=== PATIENT | male | born 1970 ===

== ENCOUNTER 2016-03-10 10:12 | Emergency (ER) | payer OTHER ==
[~2016-03-10] VITALS: Ht 165.1 cm; Wt 72.7 kg
[~2016-03-10 10:12] MED LIST: NOMED
[2016-03-10 10:17] VITALS: BP 135/89; PULSE 130; RESP 16; O2SAT 97
--- NOTE | 2016-03-10 10:30 | ED.REPORT ---
HPI-General Illness Date of Service Mar 10, 2016 ED Provider: Yousif Rueals DO Pt is a 45 y/o healthy male w/ a hx of hemorrhoids and previous anal fissure presenting to the ED c/o rectal pain for 2 days. He believes today's episode is similar to a previous anal fissure. It has been causing him significant pain with walking causing him some concern. Bowel movements exacerbate his pain. He has hard stools often. His rectum feels somewhat swollen on the outside. He denies rectal bleeding, drainage, obvious lumps or bumps, fever. He has no history of Crohn's disease or ulcerative colitis. Nursing Notes Stated Complaint: LEG PAIN/POSS Hemorrhoids Chief Complaint: General Complaint Nursing Notes Reviewed: Yes Allergies: Coded Allergies: No Known Allergies (Verified Allergy, 01/01/12) Scheduled Amoxicillin/Clav K 875-125 mg (Augmentin 875-125 mg) 1 Each Tablet 1 TABLET PO BID Scheduled PRN Ibuprofen (Ibuprofen) 800 Mg Tablet 800 MG PO TID PRN PRN For Pain Oxycodone (Roxicodone) 5 Mg Tablet 2.5-5 MG PO Q4H PRN PRN For Pain Miscellaneous Medications No Historical Medication (No Historical Medication) Ea General Time Seen by MD: 10:30 Chief Complaint Other (Rectal pain) Hx Obtained From: Patient Arrived By: Walk-in Sudden in Onset?: No Onset Occurred: 2 days ago Symptom Duration: Since onset Quality: Painful Severity: Current: Moderate Severity: Maximum: Severe Past Medical History Past Medical History Hemorrhoids Anal fissure Past Surgical History Knee Smoking History Former Smoker Social History Alcohol Use: "Social" Ambulatory Status Independent Review of Systems + rectal pain Full Review of Systems Constitutional: Denies: Fever GI: Denies: Bloody/tarry stool, Diarrhea, Nausea, Vomiting Complete sys rev & neg: except as marked. Physical Exam Vital Signs Vital Signs Date Time Temp Pulse Resp B/P Pulse Ox O2 Delivery O2 Flow Rate FiO2 03/10/16 12:05 36.9 95 15 128/80 98 Room Air 03/10/16 10:35 105 15 132/85 96 Room Air 03/10/16 10:17 36.9 130 16 135/89 97 Room Air Initial VS: Reviewed, Vital signs abnormal Head / Eyes: Atraumatic, Normocephalic, PERRL ENT: Mucous membranes moist, Conjunctiva normal, No scleral icterus Neck: Supple, Full range of motion Respiratory: Breath sounds normal, Clear to auscultation, No respiratory distress Cardiovascular: Regular rate & rhythm, Heart sounds normal, Intact distal pulses Abdomen / GI: Soft, Non-tender, No guarding, No rebound, No distention Extremities: Vascular intact, Neuro intact, No swelling, No tenderness Skin: Warm, Dry, No cyanosis Neurologic: Alert, Oriented, Nonfocal Psychiatric: Mood/affect normal, Behavior normal, Normal thought content Rectum / Perineum: Atraumatic, No gross blood, No fissures, No hemorrhoids 1.5 cm area of induration and tenderness perirectally just lateral to the sphincter at the 0900 position (right-sided). Procedures Incision & Drainage Abscess Time: 11:41 Procedure Performed by: ED physician Consent / Setup / Site Prep: Consent from patient, Time-out performed, Hand hygiene observed, Stand sterile technique, Sterile drapes applied Location of Abscess: See physical exam Skin Preparation Agent: Other (topical LET) Local Anesthesia: Lidocaine w epi 1%, 4cc Incised Abscess with Scalpel: #11 Pus Drained: Bloody Post-Procedure / Complications: Dressing applied, No complications, Condition improved, Tolerated procedure well, Patient stable Re-Eval/Medical Decision Med Decision/Clinical Course Small perirectal abscess, I&D at the bedside, no palpable induration inside of the rectum to suggest a fistula. Patient is otherwise well-appearing and I suspect a deep or otherwise a drainable abscess. Patient's symptoms have improved after I&D. He is prescribed Augmentin as well as pain management and will return to ER or follow-up in a few days with surgery. Return precautions given. Time of Eval: 11:47 Patient Status: Condition improved, Moderate relief, Pain improved Re-Evaluation/Progress Note: Pt rechecked. Informed pt of plan for treatment. Pt understands and agrees with plan for treatment. F/U and RTER warnings given. All questions addressed. Counseled Regarding: Diagnosis, Lab results, Need for follow-up, When/why to return to ED Discharge & Departure Primary Impression: Perirectal abscess Disposition: Home Discharge Condition All VS Reviewed: Yes Condition: Stable Patient Instructions: Abscess (ED) Additional Instructions: You had a perirectal abscess that was incised and drained today. I have placed the surgeon's referral number below for the surgery clinic and the [facility] which you can use for a primary doctor. Return to the emergency department if you develop a fever, your pain increases, you feel any growth of the abscess, you feel profoundly weak, or for any other concerning symptoms. Referrals: Serjio Orona MD [facility] Scribe Attestation Portions of this note were transcribed by Justin Michaels. I, Dr. Ruelas personally performed the history, physical exam and medical decision-making; I reviewed and confirmed the accuracy of the information in the transcribed note. Signed by Harriett Emerson, 03/10/16 - 1047 Yousif Ruelas DO Mar 10, 2016 10:30 JUSTIN MICHAELS Mar 10, 2016 10:47
[2016-03-10 10:35] VITALS: BP 132/85; PULSE 105; RESP 15; O2SAT 96
[2016-03-10] MEDS ORDERED: Lidocaine 1%-Epi 1:100,000 50 mL Inj SUBQ ONE (11:05)
[2016-03-10] MEDS ORDERED: Lidocaine-Epi-Tetracaine Solution 3 mL Syringe TOPICAL ONE (11:05)
[2016-03-10] MEDS ORDERED: AMOX-366 PO (11:52)
[2016-03-10] MEDS ORDERED: IBUP800T28 PO (11:52)
[2016-03-10] MEDS ORDERED: OXYC-474 PO (11:52)
[2016-03-10 12:05] VITALS: BP 128/80; PULSE 95; RESP 15; O2SAT 98
== END 2016-03-10 12:06 | disposition home or self-care (01) ==
LOC: SED 10:12
DX: K61.1 Rectal abscess (principal); Z87.891 Personal history of nicotine dependence